=== PATIENT | female | born 1965 | race Caucasian/White ===

== ENCOUNTER 2025-02-15 16:50 | Inpatient (IN) ==
[2025-02-15] MEDS ORDERED: ACETAMINOPHEN 325 MG TABLET PO PRN (21:19)
[2025-02-15] MEDS ORDERED: NALOXONE HCL 0.4 MG/ML VIAL IV PRN (21:19)
[2025-02-15 21:53] LABS: VBG HCO3 27.4 mmol/L (24.0-28.0); VBG PCO2 53.3 mmHg (41.0-51.0); VBG PH 7.33 U (7.32-7.42); VBG PO2 32.9 mmHg (25.0-40.0)
[2025-02-15] MEDS: DOCUSATE SODIUM 100 MG CAPSULE PO SCH (22:00)
[2025-02-15] MEDS: SENNOSIDES 1 TABLET PO SCH (22:00)
[2025-02-15] MEDS: 0.9 % SODIUM CHLORIDE 10 ML SYRINGE IV SCH (22:00)
[2025-02-15 22:14] LABS: Thyroid Stimulating Hormone 0.29 uIU/mL (0.27-5.01)
[2025-02-15 22:15] LABS: ALT/SGPT 20 U/L (<40); AST/SGOT 27 U/L (<32); Albumin 3.6 gm/dL (3.2-5.2); Albumin/Globulin Ratio 1.2 (1.0-2.3); Alkaline Phosphatase 86 U/L (39-117); Anion Gap 9.2 (8.0-16.0); Bilirubin,Direct 0.3 mg/dL (<0.3); Bilirubin,Total 0.6 mg/dL (0.1-1.0); Blood Urea Nitrogen 17 mg/dL (8-23); Calcium 8.9 mg/dL (8.6-10.4); Carbon Dioxide 27 mmol/L (22-30); Chloride 97 mmol/L (96-108); Globulin 3.0 gm/dL (2.2-3.7); Glucose 138 mg/dL (70-105); Phosphorous 3.3 mg/dL (2.5-4.5); Potassium 4.7 mmol/L (3.3-5.1); Sodium 133 mmol/L (133-145); Triglycerides 214 mg/dL (<150); Uric Acid 5.8 mg/dL (2.5-8.0)
[2025-02-16] MEDS: KETOROLAC 30 MG/ML VIAL IV PRN (05:09)
[2025-02-16 07:15] LABS: Basophils # (Auto) 0.02 K/mcL (0.00-0.30); Basophils % (Auto) 0.2 % (0.0-2.0); Eosinophils # (Auto) 0.28 K/mcL (0.00-0.70); Eosinophils % (Auto) 3.1 % (0.0-7.0); Hematocrit 32.3 % (34.1-44.9); Hemoglobin 10.6 g/dL (11.2-15.7); Lymphocytes # (Auto) 1.77 K/mcL (1.50-4.80); Lymphocytes % (Auto) 19.8 % (15.5-49.0); Mean Corpuscular HGB Conc 32.8 g/dL (31.0-36.0); Monocytes # (Auto) 0.77 K/mcL (0.10-0.90); Monocytes % (Auto) 8.6 % (1.0-12.0); Neutrophils % (Auto) 67.9 % (38.0-78.0); Platelet Count 170 K/mcL (140-440); RBC 3.63 M/mcL (3.59-5.38); WBC 8.9 K/mcL (4.5-11.0)
[2025-02-16 07:19] LABS: Barbiturate Screen,Urine None detected; Benzodiazepines Screen,Urine Suspect positive; Fentanyl, Urine Screen None Detected; Opiate Screen,Urine Suspect Positive; Oxycodone, Urine Screen None detected; Phencyclidine Screen,Urine None detected
[2025-02-16] MEDS: ENOXAPARIN 40 MG/0.4 ML SYRINGE SQ SCH (09:15)
[2025-02-16] MEDS ORDERED: DEXTROSE 31 GM ORAL.SUSP PO PRN (09:35)
[2025-02-16] MEDS ORDERED: DEXTROSE 50% 50 ML VIAL IV PRN (09:35)
[2025-02-16] MEDS: INSULIN LISPRO 1 UNIT/0.01 ML UNIT SQ SCH (11:10)
[2025-02-17] MEDS: ONDANSETRON 4 MG/2 ML VIAL IV PRN (08:07)
[2025-02-17] MEDS ORDERED: HYDROmorphone 0.5 MG/0.5 ML SYRINGE IV PRN (08:33)
[2025-02-17] MEDS ORDERED: ZOLPIDEM 5 MG TABLET PO PRN (08:42)
[2025-02-17 08:43] LABS: Hematocrit 32.2 % (34.1-44.9); Hemoglobin 10.7 g/dL (11.2-15.7)
[2025-02-17] MEDS: ACETAMINOPHEN 500 MG TABLET PO SCH (09:11)
[2025-02-17] MEDS: FERROUS SULFATE 325 MG TABLET PO SCH (09:11)
[2025-02-17] MEDS: ASPIRIN 81 MG TAB.CHEW PO SCH (09:11)
[2025-02-17] MEDS: VITAMIN D3 25 MCG TABLET PO SCH (09:11)
[2025-02-17] MEDS: DEXTROAMPHETAMINE AMPHETAMINE 30 MG PO SCH (09:12)
[2025-02-17] MEDS: LEVOTHYROXINE 50 MCG TABLET PO SCH (09:12)
[2025-02-17] MEDS: ACETAMINOPHEN 325 MG TABLET PO SCH (09:15)
[2025-02-17] MEDS: CALCIUM CARBONATE 500 MG TAB.CHEW PO SCH (11:27)
[2025-02-23 07:09] LABS: Midazolam Confirm, Urine 123 ng/mL (Cutoff=100)
== END 2025-02-17 13:36 | DRG 947 ==
LOC: MEDSUR 21:16
PROVIDERS: ADMIT Internal Medicine; ATTEND Internal Medicine